=== PATIENT | female | born 1955 ===

== ENCOUNTER 2018-06-09 07:46 | Day surgery (SDC) | payer SELFPAY ==
[2018-06-09] MEDS ORDERED: Lactated Ringer's 500 ML IV ONE (08:16)
[2018-06-09 08:36] VITALS: TEMP 97
[2018-06-09] MEDS ORDERED: Propofol 10 mg/ml Inj (20 ML) ONE (09:25)
[2018-06-09 09:51] VITALS: RESP 17
[2018-06-09 09:58] VITALS: BMI 34.8
[2018-06-09 10:03] VITALS: BP 116/73; PULSE 67; O2SAT 100
== END 2018-06-09 12:48 | disposition home or self-care (01) ==
LOC: H.ENDO 07:46
PROVIDERS: ATTEND Internal Medicine Gastroenterology
DX: K57.30 Diverticulosis of large intestine without perforation or abscess without bleeding (principal); K57.32 Diverticulitis of large intestine without perforation or abscess without bleeding; K64.0 First degree hemorrhoids; Z98.0 Intestinal bypass and anastomosis status
CPT/HCPCS: 45378; 88305; J2001; J2704; J7120

== ENCOUNTER 2018-08-23 21:40 | Emergency (ER) | payer SELFPAY ==
[2018-08-23 21:41] VITALS: BMI 34.8
[2018-08-23 21:50] VITALS: O2SAT 99
[2018-08-23] MEDS ORDERED: Iohexol 240 (50 ml) PO STA (22:50)
[2018-08-23] MEDS ORDERED: Morphine 4 MG/ML VIAL IVP ONE (22:52)
[2018-08-23] MEDS ORDERED: Morphine 4 MG/ML VIAL ONE (22:57)
[2018-08-23 23:21] LABS: BASO % 0.7 % (0.0-2.0); EOS # 0.1 K/uL (0.0-0.7); EOS % 1.5 % (0.0-4.0); HEMOGLOBIN 12.4 g/dL (12.0-16.0); LYMPH # 2.5 K/uL (1.0-4.3); LYMPH % 42.9 % (20.0-40.0); MEAN CELL VOLUME 91.8 fl (81.0-99.0); MEAN CORPUSCULAR HEMOGLOBIN 30.6 pg (27.0-31.0); MEAN CORPUSCULAR HGB CONC 33.3 g/dL (33.0-37.0); MEAN PLATELET VOLUME 7.9 fl (7.2-11.7); MONO # 0.4 K/uL (0.0-0.8); MONO % 7.5 % (0.0-10.0); NEUT # 2.7 K/uL (1.8-7.0); NEUT % 47.4 % (50.0-75.0); NRBC % 0.2 % (0.0-0.0); RBC 4.05 Mil/uL (3.80-5.20); RED CELL DISTRIBUTION WIDTH 15.3 % (11.5-14.5); WHITE BLOOD COUNT 5.7 K/uL (4.8-10.8)
[2018-08-23] MEDS ORDERED: Iohexol 240 (50 ml) ONE (23:26)
[2018-08-23 23:32] LABS: ALB/GLOB RATIO 1.2 (1.0-2.1); ALBUMIN 4.7 g/dL (3.5-5.0); ALT/SGPT 38 U/L (9-52); AST/SGOT 79 U/L (14-36); BLOOD UREA NITROGEN 15 mg/dl (7-17); CALCIUM 10.1 mg/dL (8.4-10.2); GFR NON-AFRICAN AMERICAN > 60; LIPASE 255 U/L (23-300)
[2018-08-23 23:32] LABS: URINE BILIRUBIN NEGATIVE (NEGATIVE); URINE BLOOD NEGATIVE (NEGATIVE); URINE CLARITY CLEAR (Clear); URINE COLOR COLORLESS (YELLOW); URINE GLUCOSE (UA) NEG (Normal); URINE LEUKOCYTE ESTERASE NEG Leu/uL (Negative); URINE PROTEIN NEGATIVE (NEGATIVE); URINE UROBILINOGEN 0.2-1.0 mg/dL (0.2-1.0)
[2018-08-24] MEDS ORDERED: Sodium Chloride 0.9% 50 ML IV ONE (00:49)
[2018-08-24] MEDS ORDERED: Iohexol 300 100 ML IJ ONE (00:49)
--- NOTE | 2018-08-24 02:26 | ED PDOC ---
HPI: Abdomen Time Seen by Provider: 08/23/18 21:52 Chief Complaint (Nursing): Abdominal Pain Chief Complaint (Provider): LUQ pain History Per: Patient History/Exam Limitations: no limitations Onset/Duration Of Symptoms: Days (15) Outside of [place] travel?: No Additional Complaint(s): 62 yo female with history of diverticulitis presents for evaluation of luq pain for 15 days. No fever/chills. No N/V/D. Pt denies similar in the past. Pt also reports headache which she states has been on/off for a long time and is not worse than normal. Past Medical History Reviewed: Historical Data, Nursing Documentation, Vital Signs Vital Signs: Last Vital Signs Temp 98.2 F 08/23/18 21:47 Pulse 66 08/23/18 21:47 Resp 18 08/23/18 21:47 BP 167/94 H 08/23/18 21:47 Pulse Ox 99 08/23/18 21:47 - Medical History PMH: Arthritis (BACK), Asthma, Depression, Diverticulitis, Gastritis, Malignancy (COLON), Rheumatoid Arthritis Denies: Chronic Kidney Disease - Surgical History Surgical History: Appendectomy, Endoscopy - Family History Family History: States: Unknown Family Hx - Living Arrangements Living Arrangements: With Family - Social History Current smoker - smoking cessation education provided: No - Immunization History Hx Tetanus Toxoid Vaccination: Yes Hx Influenza Vaccination: No Hx Pneumococcal Vaccination: No - Home Medications Home Medications: Ambulatory Orders Medication Instructions Recorded No Known Home Med 06/09/18 - Allergies Allergies/Adverse Reactions: Allergies Allergy/AdvReac Type Severity Reaction Status Date / Time No Known Allergies Allergy Verified 06/09/18 09:58 Review of Systems ROS Statement: Except As Marked, All Systems Reviewed And Found Negative Constitutional: Negative for: Fever, Chills Cardiovascular: Negative for: Chest Pain, Palpitations, Orthopnea, Paroxysmal Noc. Dyspnea Respiratory: Negative for: Cough, Shortness of Breath Gastrointestinal: Positive for: Abdominal Pain. Negative for: Nausea, Vomiting, Diarrhea Genitourinary Female: Negative for: Dysuria, Frequency, Incontinence Neurological: Positive for: Headache. Negative for: Weakness, Numbness, Incoordination, Change in Speech, Confusion, Seizures, Altered Mental Status, Dizziness Physical Exam - Reviewed Nursing Documentation Reviewed: Yes Vital Signs Reviewed: Yes - Physical Exam Appears: Positive for: Well, Non-toxic, No Acute Distress Head Exam: Positive for: ATRAUMATIC, NORMAL INSPECTION, NORMOCEPHALIC Skin: Positive for: Normal Color, Warm, DRY Eye Exam: Positive for: Normal appearance ENT: Positive for: Normal ENT Inspection Neck: Positive for: Normal, Painless ROM Cardiovascular/Chest: Positive for: Regular Rate, Rhythm Respiratory: Positive for: Normal Breath Sounds. Negative for: Accessory Muscle Use, Respiratory Distress Gastrointestinal/Abdominal: Positive for: Normal Exam, Soft, Tenderness (LUQ) Back: Positive for: Normal Inspection Extremity: Positive for: Normal ROM Neurologic/Psych: Positive for: Alert, Oriented - Laboratory Results Result Diagrams: 08/23/18 23:05 08/23/18 23:05 - ECG O2 Sat by Pulse Oximetry: 99 Pulse Ox Interpretation: Normal Medical Decision Making Medical Decision Making: Abdomen for evaluation of RUQ pain due to previous surgery or diverticulitis. CT normal. Labs normal. Urine normal. Disposition - Clinical Impression Clinical Impression: Abdominal pain in female - Patient ED Disposition Is Patient to be Admitted: No Counseled Patient/Family Regarding: Diagnosis, Need For Followup - Disposition Disposition: Routine/Home Disposition Time: 02:29 Condition: GOOD Instructions: Acute Abdomen (Belly Pain), Adult (DC) Print Language: COMORAN
[2018-08-24 04:28] VITALS: BP 134/84; PULSE 60; RESP 16; TEMP 97.9
--- NOTE | 2018-08-24 12:39 | CT ---
Date of service: 08/24/2018 PROCEDURE: CT Abdomen and Pelvis with contrast HISTORY: luq pain COMPARISON: Insert pneumonitis TECHNIQUE: Intravenous contrast dose: 90 cc Omnipaque 300. Radiation dose: Total exam DLP = 445.54 mGy-cm. This CT exam was performed using one or more of the following dose reduction techniques: Automated exposure control, adjustment of the mA and/or kV according to patient size, and/or use of iterative reconstruction technique. FINDINGS: LOWER THORAX: Unremarkable. LIVER: Unremarkable. No gross lesion or ductal dilatation. GALLBLADDER AND BILE DUCTS: Cholelithiasis without CT evidence of acute cholecystitis. PANCREAS: Unremarkable. No gross lesion or ductal dilatation. SPLEEN: Unremarkable. ADRENALS: Unremarkable. No mass. KIDNEYS AND URETERS: Unremarkable. No hydronephrosis. No solid mass. Incidental finding(s): Simple cyst right kidney 2 cm VASCULATURE: Unremarkable. No aortic aneurysm. No atherosclerotic calcification or mural plaque present. BOWEL: Diverticulosis without an acute inflammatory component or other associated pathologic process. APPENDIX: Normal appendix. PERITONEUM: Unremarkable. No free fluid. No free air. LYMPH NODES: Unremarkable. No enlarged lymph nodes. BLADDER: Unremarkable. REPRODUCTIVE: Unremarkable. BONES: No acute fracture. OTHER FINDINGS: None. IMPRESSION: Cholelithiasis without CT evidence of acute cholecystitis. Additional benign and/or incidental findings described above. Concordant results (preliminary interpretation) provided by [email or web address]. Procedure Completed: 00:59. Preliminary Report: Dictated and Authenticated: 01:13. Final Interpretation: 12:35.
--- NOTE | 2018-08-24 12:43 | CT ---
Date of service: 08/24/2018 PROCEDURE: CT HEAD WITHOUT CONTRAST. HISTORY: head pain COMPARISON: None available. TECHNIQUE: Axial computed tomography images were obtained through the head/brain without intravenous contrast. Supplemental Coronal and Sagittal projections created and reviewed. Radiation dose: Total exam DLP = 991.36 mGy-cm. This CT exam was performed using one or more of the following dose reduction techniques: Automated exposure control, adjustment of the mA and/or kV according to patient size, and/or use of iterative reconstruction technique. FINDINGS: HEMORRHAGE: No intracranial hemorrhage. BRAIN: No mass effect or edema. No atrophy or chronic microvascular ischemic changes. VENTRICLES: Unremarkable. No hydrocephalus. CALVARIUM: Unremarkable. PARANASAL SINUSES: Unremarkable as visualized. No significant inflammatory changes. MASTOID AIR CELLS: Unremarkable as visualized. No inflammatory changes. OTHER FINDINGS: None. IMPRESSION: No acute intracranial abnormalities. No significant findings to account for the clinical presentation. Concordant results (preliminary interpretation) provided by [employer]. Procedure Completed: 03:26. Preliminary Report: Dictated and Authenticated: 03:42. Final Interpretation: 12:38. August 24, 2018
== END 2018-08-24 04:32 | disposition home or self-care (01) ==
LOC: H.ER 21:40
DX: R10.12 Left upper quadrant pain (principal)
CPT/HCPCS: 70450; 74177; 80053; 81003; 83690; 85025; 87040; 87086; 96374; 99283; J2270; J2405; Q9966; Q9967